=== PATIENT | male | born 1965 | race Caucasian/White ===

== ENCOUNTER 2017-08-27 09:56 | Inpatient (IN) | payer OTHER ==
[~2017-08-27] VITALS: Ht 172.7 cm; Wt 63.5 kg
[~2017-08-27 09:56] MED LIST: AMPH20CE PO; BUPR-160 PO; CLON0.1T79 PO; QUET300T1 PO
--- NOTE | 2017-08-27 09:56 | NUR ---
Patient was BIBA at this time.
--- NOTE | 2017-08-27 10:00 | NUR ---
Bib ambulated to bed 12 from [facility].
[2017-08-27 10:01] VITALS: BP 129/82
--- NOTE | 2017-08-27 10:15 | NUR ---
51 M BIBA WITH C/O 8/10 "SHARP" NONRADIATING EPIGASTRIC PAIN WITH N/V/D X 4 DAYS; PT DENIES ANY BLOOD IN EMESIS BUT STATES BRIGHT RED BLOOD IN DIARRHEA; PT ALSO STATES OF GENERALIZED WEAKNESS WITH INTERMITTENT DIZZINESS; PT ALSO STATES HE HAS PRODUCTIVE COUGH WITH YELLOW PHLEGM; PT DENIES ANY CP OR SOB; PT IS AOX4 WITH STEADY GAIT; RR ARE EVEN AND UNLABORED; NAD; ER MD AWARE OF PT STATUS; PT POSITIONED FOR COMFORT; BED IN LOWEST POSITION; WILL CONTINUE TO MONITOR
--- NOTE | 2017-08-27 10:19 | NUR ---
Dr. Turner evaluating patient at bedside.
[2017-08-27] MEDS ORDERED: NACL 0.9% 1,000 ML IV SCH (10:26)
[2017-08-27] MEDS ORDERED: ONDANSETRON 4 MG/2 ML VIAL IVP ONE ×2 (10:30→11:45)
--- NOTE | 2017-08-27 10:50 | NUR ---
XRAY at bedside.
[2017-08-27 11:21] LABS: ANION GAP 10.8 (8-16); CARBON DIOXIDE 29.1 mmol/L (21-32); CREATININE 0.9 mg/dL (0.7-1.3); POTASSIUM 3.9 mmol/L (3.5-5.1)
[2017-08-27 11:28] LABS: ALBUMIN 3.6 g/dL (3.4-5.0); TOTAL BILIRUBIN 0.3 mg/dL (0.0-1.0)
[2017-08-27 11:37] LABS: RED BLOOD CELL COUNT(AUTO) 4.27 MIL/uL (4.20-6.10); WHITE BLOOD COUNT (AUTO) 22.3 K/uL (4.8-10.8)
[2017-08-27 11:38] LABS: MEAN CORPUSCULAR HEMOGLOBIN 26 pg (27-31); MEAN CORPUSCULAR HGB CONC 33 g/dL (33-37); MEAN CORPUSCULAR VOLUME 80 fL (80-94); PLATELET COUNT (AUTO) 269 K/uL (140-450); RED CELL DISTRIBUTION WIDTH 15.2 % (11.6-13.7)
[2017-08-27 11:41] LABS: LYMPHOCYTES % (MANUAL) 6 % (20-46)
[2017-08-27 11:42] LABS: MONOCYTES % (MANUAL) 3 % (5-12)
[2017-08-27] MEDS ORDERED: LEVOFLOXACIN 500 MG/D5W PREMIX 100 ML IV ONE (11:45)
[2017-08-27] MEDS ORDERED: NACL 0.9% 1,000 ML IV ONE (11:50)
[2017-08-27] MEDS ORDERED: ONDANSETRON 4 MG/2 ML VIAL IVP PRN (12:20)
[2017-08-27] MEDS ORDERED: DEXTROSE 50% 50 ML SYR IVP PRN (12:20)
[2017-08-27] MEDS ORDERED: ACETAMINOPHEN 325 MG TAB PO PRN (12:20)
[2017-08-27] MEDS ORDERED: HYDROcodone/APAP 5/325 MG 1 TAB TAB PO PRN (12:20)
[2017-08-27] MEDS ORDERED: INSULIN LISPRO SLIDING SCALE 100 UNITS/ML VIAL SUBQ PRN (12:20)
--- NOTE | 2017-08-27 12:35 | NUR ---
pt to ct via ming accompanied with precision lens technician
--- NOTE | 2017-08-27 12:38 | NUR ---
Patient will be admitted to care of Osorio. Admited to Tele. Will go to room 119b. Belongings list completed. Report to Ally JACKMAN.
[2017-08-27 12:55] VITALS: BP 137/75
--- NOTE | 2017-08-27 12:55 | NUR ---
RECEIVED PT REPORT AT BEDSIDE FROM ER NURSE. PT IS AOX2 TO PERSON AND PLACE AND SHOWS NO S/S OF ACUTE DISTRESS ON RA. PT BLE ARE FLAKY AND DRY; OTHERWISE, SKIN IS INTACT. ON TELE MONITOR. IV NOTED ON THE L AC WITH IVF'S INFUSING WELL. PT STATES PAIN OF 7/10 ABD PAIN. PT WAS EXPLAINED POC FOR TODAY HOWEVER NEEDS CONSTANT REINFORCEMENT. PT'S BED IS LOWERED WITH CALL LIGHT WITHIN REACH. WILL CONTINUE TO MONITOR. FALL PROTOCOL IN PLACE BED ALARM ACTIVATED.
--- NOTE | 2017-08-27 13:00 | NUR ---
PAGE DR JOSEPH REGARDING PT AT HOME MEDICATIONS DILANTIN 300 MG PO DAILY AND IF PT CAN SHOWER WHILE ON TELE MONITORING, WELL PAIN MEDICATION VERIFICATION. WILL AWAIT CALL BACK.
[2017-08-27] MEDS: NACL 0.9% 1,000 ML IV SCH ×2 (13:25→20:45)
[2017-08-27] MEDS: HYDROcodone/APAP 5/325 MG 1 TAB TAB PO PRN ×2 (13:36→18:44)
--- NOTE | 2017-08-27 13:40 | NUR ---
ADMINISTERED NORCO 5/325 MG PO FOR ABD PAIN OF 10. WILL REASSESS IN AN HR.
[2017-08-27] MEDS: ALBUTEROL 0.083% 2.5 MG/3 ML NEBU INH PRN (14:26)
--- NOTE | 2017-08-27 14:40 | NUR ---
PT STATES 5/10 TOLERABLE ABD PAIN.
[2017-08-27 15:45] LABS: PHENYTOIN (DILANTIN) 8.2 ug/ml (10.0-20.0)
[2017-08-27 16:00] VITALS: BP 138/92
--- NOTE | 2017-08-27 16:00 | NUR ---
PAGE DR JOSEPH AGAIN REGARDING PT AT HOME MEDICATIONS DILANTIN 300 MG PO DAILY AND IF PT CAN SHOWER WHILE ON TELE MONITORING, WELL PAIN MEDICATION VERIFICATION. WILL AWAIT CALL BACK.
[2017-08-27] MEDS: BLOOD GLUCOSE MONITORING 1 DEV DEV FS SCH ×2 (16:36→20:30)
--- NOTE | 2017-08-27 16:45 | NUR ---
RECEIVED CALLBACK FROM DR JOSEPH REGARDING CONTINUATION OF HOME MEDICATIONS INCLUDING PT'S DILANTIN 300 MG PO DAILY. PLACED IN ORDERS.
--- NOTE | 2017-08-27 17:18 | NUR ---
PT IS AAOX2 AND SHOWS NO S/S OF ACUTE DISTRESS ON ROOM AIR. PT VOIDED 500 CC OF CLEAR YELLOW URINE. SPECIMEN WAS COLLECTED FROM URINE UA/PROFILE. WILL SEND TO LAB.
[2017-08-27] MEDS: LORazepam 2 MG/ML VIAL IVP PRN ×2 (17:44→22:36)
--- NOTE | 2017-08-27 17:49 | NUR ---
ADMINISTERED ATIVAN 0.5 MG IVP AND ZOFRAN 4 MG IVP. PT WAS C/O ANXIETY AND NAUSEA. WILL CONTINUE TO MONITOR.
[2017-08-27 18:00] LABS: APPEARANCE,URINE CLEAR (CLEAR); BILIRUBIN,URINE NEGATIVE (NEGATIVE); BLOOD, URINE NEGATIVE (NEGATIVE); COLOR,URINE YELLOW (YELLOW); LEUKOCYTE ESTERASE ,URINE NEGATIVE (NEGATIVE); NITRITE, URINE NEGATIVE (NEGATIVE); UGLUCOSE NEGATIVE (NEGATIVE)
[2017-08-27 18:13] LABS: BARBITURATE, URINE NEG. ng/ml (NEG <=200); BENZODIAZEPINE, URINE NEG. ng/mL (NEG <=200); CANNABINOID, URINE NEG. ng/mL (NEG <=50); COCAINE, URINE NEG. ng/mL (NEG <=300); OPIATE, URINE POS. ng/mL (NEG <=2000); PHENCYCLIDINE SCREEN,URINE NEG. ng/mL (NEG <=25)
--- NOTE | 2017-08-27 18:45 | NUR ---
ADMINISTERED NORCO 5/325 MG PO FOR 7/10 ABD PAIN. REASSESS IN ONE HR.
--- NOTE | 2017-08-27 19:10 | NUR ---
GAVE PT REPORT AT BEDSIDE TO NIGHT NURSE. PT ENDORSED IN STABLE CONDITION.
--- NOTE | 2017-08-27 19:15 | NUR ---
RECEIVED REPORT FROM DAY SHIFT RN, PT IS AWAKE, ON ROOM AIR. SKIN-INTACT. 20G IV TO LEFT AC, INFUSING NS@125ML/HR. PT IS AMBULATING WITH STEADY GAIT. SAFETY PRECAUTION IN PLACE. UPDATED BOARD. DISCUSSED PLAN OF CARE WITH PT, PT VERBALIZED UNDERSTANDING. RELATIVE AT BEDSIDE. VITAL SIGNS WITHIN NORMAL LIMITS. BED IN LOW POSITION, CALL LIGHT WITHIN REACH. WILL CONTINUE TO MONITOR.
[2017-08-27 20:09] VITALS: BP 131/82
[2017-08-27] MEDS: buPROPion 75 MG TAB PO SCH (20:38)
[2017-08-27] MEDS ORDERED: NON-FORMULARY ITEM (Bupropion HCl* (Wellbutrin Xl*) 150 MG) PO SCH (21:00)
[2017-08-27] MEDS ORDERED: DEXTROAMPHETAMINE PO SCH (21:00)
[2017-08-27] MEDS ORDERED: QUEtiapine FUMARATE 100 MG TAB PO SCH (21:00)
[2017-08-27] MEDS ORDERED: AMPHETAMINE PO SCH (21:00)
--- NOTE | 2017-08-27 22:38 | NUR ---
PT C/O ANXIETY, ATIVAN GIVEN PER MD ORDER. PT TOLERATED WELL. BED IN LOW POSITION, CALL LIGHT WITHIN REACH. WILL CONTINUE TO MONITOR.
[2017-08-28] VITALS: BP 106/54
--- NOTE | 2017-08-28 01:30 | NUR ---
IV PUMP ALARM ON. ADVISED PT NOT TO BEND ARM BECAUSE IV IS AT LEFT AC, PT VERBALIZED UNDERSTANDING. PT IN STABLE CONDITION, NO SIGNS OF DISTRESS NOTED. BED IN LOW POSITION, CALL LIGHT WITHIN REACH. WILL CONTINUE TO MONITOR.
[2017-08-28 04:00] VITALS: BP 120/82
[2017-08-28] MEDS: NACL 0.9% 1,000 ML IV SCH ×2 (04:17→12:17)
--- NOTE | 2017-08-28 04:20 | NUR ---
GAVE PT SNACK PER PT REQUEST. PT VITAL SIGNS WNL. PT IN STABLE CONDITION, NO SIGNS OF DISTRESS NOTED. BED IN LOW POSITION, CALL LIGHT WITHIN REACH. WILL CONTINUE TO MONITOR.
[2017-08-28] MEDS: HYDROcodone/APAP 5/325 MG 1 TAB TAB PO PRN (05:14)
[2017-08-28] MEDS ORDERED: INFLUENZA VIRUS VACCINE QUAD 0.5 ML SYR IMVAC SCH (05:45)
[2017-08-28] MEDS ORDERED: PNEUMOCOCCAL VACCINE 23 MCG/0.5 ML VIAL IMVAC SCH (05:45)
[2017-08-28 05:54] LABS: BASOPHILS # (AUTO) 0.1 K/uL (0.00-0.22); BASOPHILS % (AUTO) 0.7 % (0.0-2.0); EOSINOPHILS # (AUTO) 0.2 K/uL (0-0.4); EOSINOPHILS % (AUTO) 1.5 % (0.0-4.0); HEMATOCRIT 34.7 % (36-52); HEMOGLOBIN 11.4 g/dL (12.0-18.0); LYMPHOCYTES # (AUTO) 1.2 K/uL (2.0-11.5); LYMPHOCYTES % (AUTO) 10.5 % (20.5-51.1); MEAN CORPUSCULAR HEMOGLOBIN 27 pg (27-31); MEAN CORPUSCULAR HGB CONC 33 g/dL (33-37); MEAN CORPUSCULAR VOLUME 80 fL (80-94); MONOCYTES # (AUTO) 0.6 K/uL (0.8-1.0); MONOCYTES % (AUTO) 5.2 % (1.7-9.3); NEUTROPHILS # (AUTO) 9.6 K/uL (1.8-7.7); NEUTROPHILS % (AUTO) 82.1 % (42.2-75.2); PLATELET COUNT (AUTO) 244 K/uL (140-450); RED BLOOD CELL COUNT(AUTO) 4.31 MIL/uL (4.20-6.10); RED CELL DISTRIBUTION WIDTH 14.2 % (11.6-13.7); WHITE BLOOD COUNT (AUTO) 11.7 K/uL (4.8-10.8)
[2017-08-28 06:18] LABS: ANION GAP 8.8 (8-16); CARBON DIOXIDE 27.1 mmol/L (21-32); CREATININE 0.8 mg/dL (0.7-1.3); MAGNESIUM 1.9 mg/dL (1.8-2.4); POTASSIUM 3.9 mmol/L (3.5-5.1); TOTAL BILIRUBIN 0.2 mg/dL (0.0-1.0)
[2017-08-28] MEDS: BLOOD GLUCOSE MONITORING 1 DEV DEV FS SCH ×2 (06:37→12:04)
--- NOTE | 2017-08-28 07:15 | NUR ---
ENDORSED PT TO DAY SHIFT RN. PT IN STABLE CONDITION.
--- NOTE | 2017-08-28 07:20 | NUR ---
RECEIVED PT REPORT AT BEDSIDE FROM PROTEIN PURIFICATION SCIENTIST. PT IS AOX2 TO PERSON AND PLACE. PT SHOWS NO S/S OF ACUTE DISTRESS ON RA. PT IS ON TELE MONITOR. IV NOTED ON THE L AC WITH NS INFUSING WELL. BED LOWERED, WITH CALL LIGHT WITHIN REACH. WILL CONTINUE TO MONITOR.
[2017-08-28 08:00] VITALS: BP 125/76
[2017-08-28] MEDS: buPROPion 75 MG TAB PO SCH (08:42)
[2017-08-28] MEDS ORDERED: LEVOFLOXACIN 500 MG/D5W PREMIX 100 ML IV SCH (09:00)
[2017-08-28] MEDS ORDERED: PHENYTOIN 100 MG CAPER PO SCH (09:00)
[2017-08-28] MEDS ORDERED: ENOXAPARIN 40 MG/0.4 ML SYR SUBQ SCH (09:00)
[2017-08-28] MEDS ORDERED: NON-FORMULARY ITEM (Clonidine Hydrochloride (Clonidine) 0.1 MG) PO SCH (09:00)
[2017-08-28] MEDS ORDERED: cloNIDine 0.1 MG TAB PO SCH (09:00)
--- NOTE | 2017-08-28 09:00 | NUR ---
PT URINATED IN THE URINAL. OUTPUT 1L. URINE IS CLEAR YELLOW.
[2017-08-28] MEDS: ALBUTEROL 0.083% 2.5 MG/3 ML NEBU INH PRN (09:15)
--- NOTE | 2017-08-28 09:23 | NUR ---
PATIENT HAS BEEN SCREENED AND CATEGORIZED HIGH NUTRITION RISK. PATIENT WILL BE SEEN WITHIN 1-2 DAYS OF ADMISSION. 08/28/17-08/29/[address]
--- NOTE | 2017-08-28 09:35 | NUR ---
PT SEEN BY DR. JOSEPH. PT CLEARED BY DR. JOSEPH TO TAKE A SHOWER.
[2017-08-28] MEDS ORDERED: LEVO500T2 PO (10:08)
[2017-08-28 10:30] VITALS: BP 120/79
--- NOTE | 2017-08-28 10:56 | NUR ---
08/28/17 RD INITIAL ASSESSMENT COMPLETED PLEASE REFER TO NUTRITION ASSESSMENT UNDER CARE ACTIVITY FOR ESTIMATED NUTRITIONAL NEEDS. 1. CONTINUE 60G CONSISTENT CARBOHYDRATE DIET 2. ADD SNACKS BID (TO BETTER MEET KCAL NEEDS) 3. RD TO FOLLOW-UP 2-3 DAYS, HIGH RISK PANKAJ WATSON, SAYRA
--- NOTE | 2017-08-28 12:25 | NUR ---
PT WAS DISCHARGED WITH HOMELESS RESOURCES AND SUBSTANCE ABUSE RESOURCES. PRESCRIPTION TEACHINGS AND DISCHARGE INSTRUCTIONS GIVEN. PT VERBALIZED UNDERSTANDING. IV DC'ed, TIP INTACT, PRESSURE APPLIED. FLU SHOT GIVEN. PT TOLERATED WELL. PT LEFT IN STABLE CONDITION. WRIST BANDS REMOVED. PT TOOK ALL HIS BELONGINGS AND HIS DISCHARGE PAPERS.
--- NOTE | 2017-08-28 15:20 | NUR ---
FAXED INITIAL REVIEW AND DISCHARGE SUMMARY TO [facility] [phone] PHONE [phone].
== END 2017-08-28 12:25 | disposition home or self-care (01) | DRG 720 ==
LOC: MED 09:56 → MTU 12:17
PROVIDERS: ADMIT Hospitalist; ATTEND Hospitalist
PROC: 3E0234Z Introduction of Serum, Toxoid and Vaccine into Muscle, Percutaneous Approach (ICD-10-PCS; principal; 2017-08-28)
DX: A41.9 Sepsis, unspecified organism (principal); J18.9 Pneumonia, unspecified organism; F33.9 Major depressive disorder, recurrent, unspecified; I10 Essential (primary) hypertension; E11.9 Type 2 diabetes mellitus without complications; D64.9 Anemia, unspecified; F15.10 Other stimulant abuse, uncomplicated; F11.90 Opioid use, unspecified, uncomplicated; F12.90 Cannabis use, unspecified, uncomplicated; F14.90 Cocaine use, unspecified, uncomplicated; F17.210 Nicotine dependence, cigarettes, uncomplicated; G40.909 Epilepsy, unspecified, not intractable, without status epilepticus; Z88.0 Allergy status to penicillin; Z90.49 Acquired absence of other specified parts of digestive tract; Z59.0 Homelessness; Z71.51 Drug abuse counseling and surveillance of drug abuser; Z91.14 Patient's other noncompliance with medication regimen; Z23 Encounter for immunization; Z79.4 Long term (current) use of insulin
CPT/HCPCS: 36415; 71010; 71250; 80053; 80185; 80305; 81003; 82948; 83605; 83690; 83735; 85025; 87040; 87081; 90658; 93005; 94640; 96361; 96365; 96375; 99285; J1650; J1815; J1956; J2060; J2405; J7030; J7613; Q0092

== ENCOUNTER 2017-10-20 19:37 | Inpatient (IN) | payer MEDICAID, OTHER ==
[~2017-10-20] VITALS: Ht 172.7 cm; Wt 68.0 kg
[~2017-10-20 19:37] MED LIST changes: -AMPH20CE PO; -CLON0.1T79 PO; +LEVO500T2 PO
[2017-10-20 19:48] VITALS: BP 143/90
--- NOTE | 2017-10-20 20:35 | NUR ---
PT. AMBULATES TO ER OF 3
--- NOTE | 2017-10-20 20:48 | NUR ---
Patient being evaluated by at bedside.
[2017-10-20] MEDS ORDERED: HALOPERIDOL 5 MG TAB PO STA (20:52)
--- NOTE | 2017-10-20 21:15 | NUR ---
[place] [facility] AT OF 3 EVALUATING PT.
--- NOTE | 2017-10-20 21:15 | NUR ---
51Y/M PT. PRESENTS TO ED WITH COUGH AND HALLUCINATION. PT. STATES COUGH FOR 3 DAYS. ALSO STATES HEARING VOICE, RUN OUT OF MED FOR BIPOLAR. HX. HTN, DM, EPILEPSY. AAO X4, AMBULATORY WITH STEADY GAIT. RESPIRATIONS ROOM AIR, EVEN AND UNLABORED, C/O COUGH. NO C/O PAIN AT THIS TIME. ER MD MADE AWARE OF PT. STATUS.
--- NOTE | 2017-10-20 21:25 | NUR ---
PT MOVED TO BED 2
--- NOTE | 2017-10-20 21:45 | NUR ---
PATIENT PLACED ON 5150 HOLD. UPDATED TRIAGE LEVEL AND CHIEF COMPLAINT.
--- NOTE | 2017-10-20 22:00 | NUR ---
PATIENT BELONGINGS TAKEN BY SECURITY. PT RESTING AT THIS TIME.
[2017-10-20 22:02] LABS: HEMATOCRIT 40.9 % (36-52); MEAN CORPUSCULAR HEMOGLOBIN 26 pg (27-31); MEAN CORPUSCULAR HGB CONC 32 g/dL (33-37); MEAN CORPUSCULAR VOLUME 80 fL (80-94); PLATELET COUNT (AUTO) 311 K/uL (140-450); RED BLOOD CELL COUNT(AUTO) 5.12 MIL/uL (4.20-6.10); RED CELL DISTRIBUTION WIDTH 15.6 % (11.6-13.7); WHITE BLOOD COUNT (AUTO) 5.6 K/uL (4.8-10.8)
[2017-10-20] MEDS ORDERED: HALOPERIDOL IM 5 MG/ML VIAL IM ONE (22:05)
[2017-10-20 22:07] LABS: BARBITURATE, URINE NEG. ng/ml (NEG <=200); BENZODIAZEPINE, URINE NEG. ng/mL (NEG <=200); CANNABINOID, URINE NEG. ng/mL (NEG <=50); COCAINE, URINE NEG. ng/mL (NEG <=300); OPIATE, URINE NEG. ng/mL (NEG <=2000); PHENCYCLIDINE SCREEN,URINE NEG. ng/mL (NEG <=25)
[2017-10-20 22:12] LABS: PROTHROMBIN TIME 11.6 secs (10.8-13.4)
[2017-10-20 22:17] LABS: LYMPHOCYTES % (MANUAL) 32 % (20-46); MONOCYTES % (MANUAL) 14 % (5-12)
--- NOTE | 2017-10-20 22:17 | NUR ---
5150 PAPERWORK COMPLETED AND PLACED IN PT CHART.
[2017-10-20 22:18] LABS: CARBON DIOXIDE 27.2 mmol/L (21-32); CHLORIDE 102 mmol/L (98-107); CREATININE 0.9 mg/dL (0.7-1.3); GFR ARICAN-AMERICAN 114 mL/min (>90); GLUCOSE 89 mg/dL (74-106); POTASSIUM 4.2 mmol/L (3.5-5.1); SODIUM SERUM 138 mmol/L (136-145); UREA NITROGEN, BLOOD 13 mg/dL (7-18)
[2017-10-20 22:22] LABS: ALBUMIN 3.9 g/dL (3.4-5.0); ASPARTATE AMINOTRANSFERASE 12 U/L (15-37); TOTAL BILIRUBIN 0.2 mg/dL (0.0-1.0)
[2017-10-20 22:26] LABS: ACETAMINOPHEN < 0.5 ug/ml (10-30); SALICYLATE < 2.8 mg/dL (2.8-20.0)
--- NOTE | 2017-10-20 23:00 | NUR ---
PATIENT RESTING AT THIS TIME. NO SIGNS OF DISTRESS.
--- NOTE | 2017-10-21 | NUR ---
PATIENT RESTING AT THIS TIME. NO SIGNS OF DISTRESS.
[2017-10-21] MEDS ORDERED: ACET-2858 PO (01:18)
--- NOTE | 2017-10-21 01:30 | NUR ---
Patient will be admitted to care of DR. Den MONAE. Admited to M/S. Will go to room 109B. Belongings list completed. Report to VERONICA JACKMAN.
[2017-10-21 01:50] VITALS: BP 130/81
--- NOTE | 2017-10-21 01:50 | NUR ---
PT ARRIVED AT UNIT, PT STABLE, NO DISTRESS NOTED, NO IV ACCESS, INITIAL ASSESSMENT DONE, ALL SAFETY PRECAUTION MET, 1:1 SITTER BY BEDSIDE, WILL CONTINUE TO MONITOR.
--- NOTE | 2017-10-21 02:20 | NUR ---
CHECKED ON PT, PT STABLE, NO DISTRESS NOTED, PT DOES NOT WANT TO ANSWER QUESTIONS, 1:1 SITTER BY BEDSIDE, WILL CONTINUE TO MONITOR.
--- NOTE | 2017-10-21 05:10 | NUR ---
CHECKED ON PT, PT STABLE, RESTING QUIETLY IN ROOM, NO DISTRESS NOTED, 1:1 SITTER BY BEDSIDE, WILL CONTINUE TO MONITOR.
[2017-10-21] MEDS ORDERED: HYDROcodone/APAP 5/325 MG 1 TAB TAB PO PRN (05:20)
[2017-10-21] MEDS ORDERED: HYDROcodone/APAP 10/325 MG 1 TAB TAB PO PRN (05:20)
[2017-10-21] MEDS ORDERED: ONDANSETRON 4 MG/2 ML VIAL IVP PRN (05:20)
[2017-10-21] MEDS ORDERED: ACETAMINOPHEN 325 MG TAB PO PRN (05:20)
--- NOTE | 2017-10-21 07:15 | NUR ---
GAVE BEDSIDE REPORT TO DAY SHIFT NURSE HERNÁN JACKMAN, ENDORSED PLAN OF CARE, PT STABLE, NO DISTRESS NOTED, 1:1 SITTER BY BEDSIDE.
--- NOTE | 2017-10-21 07:34 | NUR ---
ENDORSEMENT RECEIVED FROM PRODUCT MANAGENT INTERN NURSE. PATIENT IS SLEEPING COMFORTABLY. RESPIRATION EVEN, UNLABOR. SKIN DRY AND WARM. BED AT LOW POSITION. SAFETY MEASURES WERE APPLIED WITH 1:1 SITTER. WILL CONTINUE TO MONITOR.
[2017-10-21 08:00] VITALS: BP 148/86
--- NOTE | 2017-10-21 08:00 | NUR ---
PATIENT COMPLAINED OF HAVING LOCK JAW FOR [address] MONAE WAS MADE AWARE, ADVISED TO FOLLOW UP WITH THE PSYCHIATRIST.
--- NOTE | 2017-10-21 08:54 | NUR ---
PATIENT HAS BEEN SCREENED AND CATEGORIZED LOW NUTRITION RISK. PATIENT WILL BE SEEN WITHIN 7 DAYS OF ADMISSION. 10/27/[address]
[2017-10-21] MEDS ORDERED: diphenhydrAMINE 50 MG CAP PO PRN (09:15)
[2017-10-21] MEDS: buPROPion 150 MG TABER PO SCH ×2 (09:46→21:05)
--- NOTE | 2017-10-21 10:06 | NUR ---
IV 20G WAS PLACED ON LEFT FOREARM. PATIENT TOLERATED WELL.
--- NOTE | 2017-10-21 13:51 | NUR ---
PATIENT IS SLEEPING COMFORTABLY, RESPIRATION EVEN, UNLABOR. NO DISTRESS NOTED AT THIS TIME. STILL ON 1:1 SITTER. WILL CONTINUE TO MONITOR
[2017-10-21 16:00] VITALS: BP 116/69
--- NOTE | 2017-10-21 16:10 | NUR ---
PATIENT IS ASLEEP, EASILY AROUSABLE BY NAME. RESPIRATION EVEN, UNLABOR. DENIED PAIN AT THIS TIME. COMPLAINED OF HEARING VOICES. WILL CONTINUE TO MONITOR CLOSELY.
--- NOTE | 2017-10-21 18:15 | NUR ---
PATIENT IS SLEEPING COMFORTABLY. RESPIRATION EVEN, UNLABOR. NO DISTRESS NOTED AT THIS TIME. WILL CONTINUE TO MONITOR WITH 1:1 SITTER
--- NOTE | 2017-10-21 19:17 | NUR ---
ENDORSEMENT GIVEN TO THE INSPECTORS AND REGULATORY OFFICERS NURSE. PATIENT IS STABLE AT THIS TIME.
--- NOTE | 2017-10-21 19:25 | NUR ---
RECEIVE DPT IN STABLE CONDITION FROM AM NURSE. AWAKE,ALERT AND ORIENTED X4. ON MED SURG PT. ON 1;1 SITTER DUE TO 5150. PT HAS HL ON THE LT FA, CLEAR AND PATENT.PLAN OG CARE DISCUSSED. WILL NEED REINFORCEMENT. BED ON LOW POSITION. NO C/O ANY PAIN NOR DISCOMFORT NOTED. WILL CONTINUE TO MONITOR.
--- NOTE | 2017-10-21 20:17 | NUR ---
PT ABLE TO TAKE NIGHT MEDICATIONS. NO C/O OF ANY PAIN NOR DISCOMFORT NOTED. Addendum: 10/21/17 at 2235 by Debi Dunham RN PT TOOK MEDS [id number] .
[2017-10-21] MEDS ORDERED: QUEtiapine FUMARATE 100 MG TAB PO SCH (21:00)
--- NOTE | 2017-10-21 22:35 | NUR ---
PT IS SLEEPING AT THIS TIME. SITTER IS AT BEDSIDE. WILL CONTINUE TO MONITOR.
[2017-10-22 00:30] VITALS: BP 106/70
--- NOTE | 2017-10-22 00:35 | NUR ---
ABLE TO TAKE VITAL SIGNS . REMAINS STABLE. WILL CONTINUE TO MONITOR.
--- NOTE | 2017-10-22 01:30 | NUR ---
MADE ROUNDS. PT IS ASLEEP. NO S/S OF ANY DISCOMFORT NOR PAIN NOTED.
--- NOTE | 2017-10-22 03:30 | NUR ---
PT SLEEPING . NO S/S OF ANY DISCOMFORT NOTED.
--- NOTE | 2017-10-22 06:00 | NUR ---
UP TO THE BATHROOM. VOIDED. NO C/O ANY PAIN NOTED.
--- NOTE | 2017-10-22 07:20 | NUR ---
ENDORSED PT IN STABLE CONDITION TO AM NURSE.
--- NOTE | 2017-10-22 07:21 | NUR ---
RECEIVED REPORT FROM PHP CONSULTANT NURSE. PATIENT LYING IN BED COMFORTABLY. IN STABLE CONDITION. NO DISTRESS NOTED. DENIES ANY PAIN AT THIS TIME. AAOX3, CALM, COOPERATIVE, REPORTS CONTINUED HEARING VOICES IN HEAD, NO THOUGHTS OF HARMING SELF AT THIS TIME. SKIN COLOR APPROPRIATE TO ETHNICITY, WARM TO TOUCH, SKIN IS INTACT THROUGHOUT BODY. LUNGS CTA ON ALL LOBES. ABDOMEN SOFT, NON-TENDER, NON-DISTENDED. IV SITE IS PATENT, INTACT, ON SALINE LOCK. REVIEWED PLAN OF CARE WITH PATIENT. PATIENT VERBALIZED UNDERSTANDING. SAFETY MEASURES IN PLACE, 1:1 SITTER AT BEDSIDE. WILL CONTINUE TO MONITOR.
[2017-10-22 08:00] VITALS: BP 131/82
[2017-10-22] MEDS: buPROPion 150 MG TABER PO SCH (08:28)
--- NOTE | 2017-10-22 08:30 | NUR ---
PATIENT LYING IN BED. NO DISTRESS NOTED. DENIES ANY PAIN. CONDITION UNCHANGED. SCHEDULED MEDICATIONS DUE GIVEN. SAFETY MEASURES IN PLACE, 1:1 SITTER AT BEDSIDE. WILL CONTINUE TO MONITOR.
[2017-10-22 08:56] LABS: HEMOGLOBIN 13.6 g/dL (12.0-18.0); RED CELL DISTRIBUTION WIDTH 15.4 % (11.6-13.7)
[2017-10-22 08:57] LABS: ANION GAP 12.3 (8-16); CARBON DIOXIDE 27.3 mmol/L (21-32); CREATININE 1.1 mg/dL (0.7-1.3); POTASSIUM 3.6 mmol/L (3.5-5.1)
[2017-10-22 09:13] LABS: MEAN CORPUSCULAR HEMOGLOBIN 25 pg (27-31); MEAN CORPUSCULAR HGB CONC 32 g/dL (33-37); MEAN CORPUSCULAR VOLUME 80 fL (80-94); PLATELET COUNT (AUTO) 243 K/uL (140-450); RED BLOOD CELL COUNT(AUTO) 5.37 MIL/uL (4.20-6.10)
[2017-10-22 09:17] LABS: WHITE BLOOD COUNT (AUTO) 3.6 K/uL (4.8-10.8)
[2017-10-22 09:25] LABS: LYMPHOCYTES % (MANUAL) 26 % (20-46); MONOCYTES % (MANUAL) 7 % (5-12)
--- NOTE | 2017-10-22 10:15 | NUR ---
PATIENT SITTING IN BED COMFORTABLY. NO DISTRESS NOTED. DENIES ANY PAIN. CONTINUES TO REPORT HAVING VOICES IN HEAD, BUT DENIES ANY THOUGHTS OF HARMING SELF. CONDITION UNCHANGED. SAFETY MEASURES IN PLACE, 1:1 SITTER AT BEDSIDE. WILL CONTINUE TO MONITOR.
--- NOTE | 2017-10-22 12:00 | NUR ---
PATIENT SITTING IN BED WITH LUNCH TRAY IN FRONT. NO DISTRESS. DENIES ANY PAIN. CONDITION UNCHANGED. SAFETY MEASURES IN PLACE, 1:1 SITTER AT BEDSIDE. WILL CONTINUE TO MONITOR.
--- NOTE | 2017-10-22 13:36 | NUR ---
PATIENT LYING IN BED SLEEPING, AROUSABLE BY VOICE. NO DISTRESS NOTED. DENIES ANY PAIN. DENIES ANY THOUGHTS OF HARMING SELF. CONDITION UNCHANGED. SAFETY MEASURES IN PLACE, 1:1 SITTER AT BEDSIDE. WILL CONTINUE TO MONITOR.
--- NOTE | 2017-10-22 14:40 | NUR ---
PATIENT ACCEPTED INTO [facility] [address] [facility] [place] [address] AVITIA ACCEPTING MD THERE. PATIENT MADE AWARE OF PLANS AND IS COOPERATIVE. SAFETY MEASURES IN PLACE, 1:1 SITTER AT BEDSIDE. WILL CONTINUE TO MONITOR.
--- NOTE | 2017-10-22 15:09 | NUR ---
CALLED [facility] AND GAVE REPORT TO AUGUSTINA ARNOLD. ANSWERED ALL QUESTIONS [place] HAD FOR PATIENT. [facility] TRANSPORT IS SCHEDULED TO [facility] NUM[facility]ER PATIENT AROUND 1530. ACCEPTING MD IS DR. AVITIA. PATIENT MADE AWARE AND VERBALIZED UNDERSTANDING. WILL CONTINUE TO MONITOR.
--- NOTE | 2017-10-22 15:23 | NUR ---
LEFT A MESSAGE TO DR LEROY'S OFFICE REGARDING CANCELATION OF EVALUATION BECAUSE PATIENT IS ACCEPTING AND GOING TO [facility]
--- NOTE | 2017-10-22 15:30 | NUR ---
PROVIDED DISCHARGE INSTRUCTIONS/EDUCATION TO PATIENT IN PATIENT'S PREFERRED LANGUAGE OF [place]. ANSWERED ALL OF PATIENT'S QUESTIONS REGARDING TRANSFER TO [facility]. PATIENT VERBALIZED UNDERSTANDING. IV SITE REMOVED WITH MINIMAL BLOOD AND LUMEN COMPLETELY INTACT. ID BANDS REMOVED. ALL BELONGINGS WITH PATIENT. PATIENT ALL DRESSED UP IN HIS OWN CLOTHES. AWAITING [facility] TRANSPORT TO ADMINISTRATIVE PERSONAL ASSISTANT PATIENT WITH APPROXIMATE ADMINISTRATIVE PERSONAL ASSISTANT TIME AT 1530. SAFETY MEASURES IN PLACE, 1:1 SITTER AT BEDSIDE. WILL CONTINUE TO MONITOR.
--- NOTE | 2017-10-22 15:50 | NUR ---
[facility]ORT ARRIVED ON MST UNIT TO TAKE PATIENT TO [facility]. COPY OF PATIENT'S CHART GIVEN TO TRANSPORTERS. ALL BELONGINGS WITH PATIENT. PATIENT IS CALM, COOPERATIVE MOOD. ABLE TO AMBULATE INDEPENDENTLY WITH STEADY GAIT. PATIENT DISCHARGED AT THIS TIME TO [facility] VIA [facility]SPORT IN STABLE CONDITION.
== END 2017-10-22 15:50 | DRG 114 ==
LOC: MED 19:37 → MTU 10-21 01:17
PROVIDERS: ADMIT Preventive Medicine Preventive Medicine/Occupational Environmental Medicine; ATTEND Preventive Medicine Preventive Medicine/Occupational Environmental Medicine
DX: M26.69 Other specified disorders of temporomandibular joint (principal); R45.851 Suicidal ideations; I10 Essential (primary) hypertension; R44.0 Auditory hallucinations; G40.909 Epilepsy, unspecified, not intractable, without status epilepticus; E11.9 Type 2 diabetes mellitus without complications; F17.210 Nicotine dependence, cigarettes, uncomplicated; F15.90 Other stimulant use, unspecified, uncomplicated; Z88.0 Allergy status to penicillin; Z91.14 Patient's other noncompliance with medication regimen
CPT/HCPCS: 36415; 71010; 80048; 80053; 80305; 85025; 85610; 87081; 96372; 99285; G0480; G0482; J1630; Q0163

== ENCOUNTER 2018-02-04 14:32 | Emergency (ER) | payer MEDICAID, OTHER ==
[~2018-02-04] VITALS: Ht 172.7 cm; Wt 72.2 kg
[~2018-02-04 14:32] MED LIST changes: +ACET-2858 PO; -LEVO500T2 PO
[2018-02-04 14:45] VITALS: BP 124/91
[2018-02-04] MEDS ORDERED: ALBUTEROL 0.083% 2.5 MG/3 ML NEBU INH ONE (15:45)
[2018-02-04] MEDS ORDERED: predniSONE 20 MG TAB PO ONE (15:45)
[2018-02-04] MEDS ORDERED: IPRATROPIUM 0.02% 0.5 MG/2.5 ML NEBU INH ONE (15:45)
[2018-02-04 16:48] VITALS: BP 123/89
== END 2018-02-04 17:06 | disposition home or self-care (01) ==
LOC: MED 14:32
DX: J45.901 Unspecified asthma with (acute) exacerbation (principal); F31.9 Bipolar disorder, unspecified; E11.9 Type 2 diabetes mellitus without complications; I10 Essential (primary) hypertension; Z88.0 Allergy status to penicillin
CPT/HCPCS: 94640; 99283; J7512; J7613; J7644